=== PATIENT | female | born 1970 | race Caucasian/White ===

== ENCOUNTER → 2018-09-04 | Outpatient (CLI) | payer OTHER ==
[~2018-09-04] MED LIST: ALKA SELTZER PLUS PO; ZANTAC 7575 MG PO
== END ==
LOC: MC.RAD 07:57
DX: Z12.31 Encounter for screening mammogram for malignant neoplasm of breast (principal)

== ENCOUNTER → 2018-10-16 | Outpatient (CLI) | payer OTHER | LOC: LIGHT 09-24 14:17 | DX: E88.81 Metabolic syndrome and other insulin resistance (principal); K21.9 Gastro-esophageal reflux disease without esophagitis; R53.83 Other fatigue; E66.01 Morbid (severe) obesity due to excess calories; Z68.42 Body mass index [BMI] 45.0-49.9, adult; Z71.3 Dietary counseling and surveillance ==

== ENCOUNTER → 2018-11-22 | Outpatient (CLI) | payer OTHER ==
[~2018-11-22] VITALS: Ht 160 cm; Wt 116.1 kg
[~2018-11-22] MED LIST changes: +PHENTERMINE15 MG PO
[2018-11-22 11:23] VITALS: BP 120/80; PULSE 72
== END ==
LOC: LIGHT 11:17
DX: E88.81 Metabolic syndrome and other insulin resistance (principal); K21.9 Gastro-esophageal reflux disease without esophagitis; R53.81 Other malaise; E66.01 Morbid (severe) obesity due to excess calories; Z68.42 Body mass index [BMI] 45.0-49.9, adult; Z71.3 Dietary counseling and surveillance
CPT/HCPCS: G0463

== ENCOUNTER → 2019-01-31 | Outpatient (CLI) | payer OTHER ==
[~2019-01-31] VITALS: Ht 160 cm; Wt 115.0 kg
[~2019-01-31] MED LIST changes: +FASTIN30 MG PO; -PHENTERMINE15 MG PO
[2019-01-31 14:08] VITALS: BP 120/72; PULSE 92
== END ==
LOC: LIGHT 12-27 16:12
DX: E88.81 Metabolic syndrome and other insulin resistance (principal); K21.9 Gastro-esophageal reflux disease without esophagitis; R53.83 Other fatigue; E66.01 Morbid (severe) obesity due to excess calories; Z68.41 Body mass index [BMI] 40.0-44.9, adult; Z71.3 Dietary counseling and surveillance
CPT/HCPCS: G0463

== ENCOUNTER → 2019-04-04 | Outpatient (CLI) | payer OTHER ==
[~2019-04-04] VITALS: Ht 160 cm; Wt 113.4 kg
[~2019-04-04] MED LIST changes: +ADIPEX-P37.5 MG PO
[2019-04-04 09:52] VITALS: BP 138/90; PULSE 72
== END ==
LOC: LIGHT 02-28 13:38
DX: E88.81 Metabolic syndrome and other insulin resistance (principal); K21.9 Gastro-esophageal reflux disease without esophagitis; R53.83 Other fatigue; E66.01 Morbid (severe) obesity due to excess calories; Z68.41 Body mass index [BMI] 40.0-44.9, adult; Z71.3 Dietary counseling and surveillance
CPT/HCPCS: G0463

== ENCOUNTER → 2019-05-09 | Outpatient (CLI) | payer OTHER ==
[~2019-05-09] VITALS: Ht 160 cm; Wt 110.4 kg
[2019-05-09 10:41] VITALS: BP 124/86; PULSE 86
== END ==
LOC: LIGHT 10:18
DX: E88.81 Metabolic syndrome and other insulin resistance (principal); K21.9 Gastro-esophageal reflux disease without esophagitis; R53.83 Other fatigue; E66.01 Morbid (severe) obesity due to excess calories; Z68.41 Body mass index [BMI] 40.0-44.9, adult; Z71.3 Dietary counseling and surveillance
CPT/HCPCS: G0463

== ENCOUNTER → 2020-06-01 | Outpatient (CLI) | payer OTHER | LOC: ZCOL.LAB 15:39 | DX: Z20.828 Contact with and (suspected) exposure to other viral communicable diseases (principal) ==